=== PATIENT | female | born 1960 | race Two or more races ===

== ENCOUNTER 2024-11-20 15:51 | Inpatient (IN) | payer BC, MEDICAID ==
[~2024-11-20] VITALS: Ht 157.5 cm; Wt 106.6 kg
[2024-11-20] MEDS: IPRATROPIUM BROMIDE (0.02%) 0.5MG/2.5ML NEB HHN STA (16:12)
[2024-11-20] MEDS: ALBUTEROL (0.083%) 2.5MG/3ML NEB HHN STA (16:12)
[2024-11-20] MEDS: CEFTRIAXONE 1GM/50ML 50 ML IV ONE (16:15)
[2024-11-20] MEDS: AZITHROMYCIN 500MG/250ML 250 ML IV ONE (16:15)
[2024-11-20] MEDS: SODIUM CHLORIDE 0.9% (SEPSIS BOLUS) IV ONE (16:34)
[2024-11-20] MEDS: METHYLPREDNISOLONE SOD SUCC 125MG/2ML (ACT-O-VIAL) IV STA (16:42)
[2024-11-20 16:58] LABS: BASOPHILS % 0.7 % (0.0-2.0); EOSINOPHILS % 4.8 % (0.0-5.0); HEMATOCRIT. 26.1 % (36.0-48.0); HEMOGLOBIN. 8.2 g/dL (12.0-16.0); MEAN CORPUSCULAR HEMOGLOBIN 26.9 pg (28.0-32.0); MEAN CORPUSCULAR HGB CONC 31.6 g/dL (31.0-37.0); MEAN CORPUSCULAR VOLUME 85.1 fL (81.0-99.0); MEAN PLATELET VOLUME 8.2 fl (7.4-10.4); MONOCYTES % 9.6 % (2.0-8.0); NEUTROPHILS % 57.9 % (40.0-76.0); PLATELET 348 x1000/uL (130-400); RED BLOOD CELL COUNT 3.07 mill/uL (4.2-5.4); WHITE BLOOD COUNT 6.6 x1000/uL (4.5-11.0)
[2024-11-20 17:11] LABS: CHLORIDE 99 mEq/L (98-107); POTASSIUM 3.1 mEq/L (3.5-5.1); SODIUM 137 mEq/L (136-145)
[2024-11-20 17:12] LABS: CALCIUM 9.4 mg/dL (8.7-10.4); CARBON DIOXIDE 27 mEq/L (21-32)
[2024-11-20 17:17] LABS: CREATININE 0.7 mg/dL (0.6-1.0); D-DIMER 4.13 mg/L FEU (<0.50); GLUCOSE 159 mg/dL (70-105); INR 0.9; PARTIAL THROMBOPLASTIN TIME 25.9 sec (23.4-31.0); PROTHROMBIN TIME 10.3 sec (9.6-11.0); UREA NITROGEN BLOOD 13 mg/dL (9-23)
[2024-11-20 17:19] LABS: ALANINE AMINOTRANSFERASE 38 IU/L (10-49); ALBUMIN 4.3 g/dL (3.2-4.8); ASPARTATE AMINOTRANSFERASE 32 IU/L (<34); BILIRUBIN DIRECT 0.2 mg/dL (<=3.0)
[2024-11-20 17:20] LABS: BILIRUBIN TOTAL 0.7 mg/dL (0.1-1.0); PROTEIN TOTAL 7.2 g/dL (6.0-8.3)
[2024-11-20 17:49] LABS: TROPONIN I HIGH SENSITIVITY < 4 ng/L (3.0-34)
[2024-11-20] MEDS: POTASSIUM CHLORIDE 20MEQ/PACKET PO ONE (18:05)
[2024-11-20] MEDS ORDERED: OXYC1TAB12 PO (18:39)
[2024-11-20] MEDS ORDERED: FLUT1BLS13 (18:39)
[2024-11-20 18:40] VITALS: PULSE 67; RESP 24; O2SAT 99
[2024-11-20] MEDS ORDERED: ZOLPIDEM TARTRATE 5MG TABLET PO PRN (18:45)
[2024-11-20] MEDS ORDERED: DOCUSATE SODIUM 100MG CAPSULE PO PRN (18:45)
[2024-11-20] MEDS: ENOXAPARIN 80MG/0.8ML SYR SUBCUT ONE (19:05)
[2024-11-20] MEDS ORDERED: NALOXONE HCL 0.4MG/ML VIAL IV PRN (19:30)
[2024-11-20] MEDS: ENOXAPARIN 80MG/0.8ML SYR SUBCUT SCH (19:52)
[2024-11-20] MEDS ORDERED: IOHEXOL-350 100 ML BOTTLE ONE (20:50)
[2024-11-20] MEDS: PANTOPRAZOLE 40MG DR TABLET PO SCH (21:00)
[2024-11-20] MEDS: ONDANSETRON HCL 4MG/2ML INJ IV PRN (21:22)
[2024-11-20] MEDS: ACETAMINOPHEN 325MG TABLET PO PRN (21:22)
[2024-11-20 22:50] LABS: CLARITY URINE CLEAR (CLEAR); COLOR URINE YELLOW (YELLOW); GLUCOSE URINE NEGATIVE (NEGATIVE); KETONES URINE NEGATIVE (NEGATIVE); LEUKOCYTE ESTERASE URINE NEGATIVE (NEGATIVE); NITRITE URINE NEGATIVE (NEGATIVE); OCCULT BLOOD URINE NEGATIVE (NEGATIVE); PH URINE 7.5 (4.5-8.0); PROTEIN URINE NEGATIVE (NEGATIVE); SPECIFIC GRAVITY URINE 1.018 (1.005-1.030); UROBILINOGEN URINE 0.2 E.U./dL (0.2-1.0)
[2024-11-20] MEDS: OXYCODONE HCL/ACETAMINOPHEN 5/325MG TABLET PO PRN (23:26)
[2024-11-21 00:45] VITALS: BP 121/60; PULSE 86; RESP 20; TEMP 37.252
[2024-11-21 02:08] LABS: TROPONIN I HIGH SENSITIVITY < 4 ng/L (3.0-34)
[2024-11-21 04:59] VITALS: PULSE 71; RESP 17; O2SAT 97
[2024-11-21] MEDS: IPRATROPIUM/ALBUTEROL 0.5-3(2.5)MG/3ML NEB HHN PRN (04:59)
[2024-11-21 08:00] VITALS: BP 103/55; PULSE 58; RESP 18; TEMP 36.22512; O2SAT 98
[2024-11-21 08:08] LABS: VITAMIN B12 SERUM 619 pg/mL (211-911)
[2024-11-21 09:07] LABS: BASOPHILS % 0.2 % (0.0-2.0); HEMATOCRIT. 22.6 % (36.0-48.0); HEMOGLOBIN. 7.4 g/dL (12.0-16.0); LYMPHOCYTES % 8.5 % (20.0-50.0); MEAN CORPUSCULAR HEMOGLOBIN 27.9 pg (28.0-32.0); MEAN CORPUSCULAR HGB CONC 32.7 g/dL (31.0-37.0); MEAN CORPUSCULAR VOLUME 85.4 fL (81.0-99.0); MEAN PLATELET VOLUME 8.3 fl (7.4-10.4); MONOCYTES % 7.9 % (2.0-8.0); NEUTROPHILS % 83.4 % (40.0-76.0); PLATELET 338 x1000/uL (130-400); RED BLOOD CELL COUNT 2.65 mill/uL (4.2-5.4); RED CELL DISTRIBUTION WIDTH 15.1 % (11.6-14.6); WHITE BLOOD COUNT 7.2 x1000/uL (4.5-11.0)
[2024-11-21 09:15] LABS: CHLORIDE 105 mEq/L (98-107); POTASSIUM 4.5 mEq/L (3.5-5.1); SODIUM 139 mEq/L (136-145)
[2024-11-21 09:16] LABS: CALCIUM 9.5 mg/dL (8.7-10.4); CARBON DIOXIDE 27 mEq/L (21-32)
[2024-11-21] MEDS: PREDNISONE 20MG TABLET PO SCH (09:17)
[2024-11-21] MEDS: FERROUS SULFATE 325MG TABLET PO SCH (09:17)
[2024-11-21 09:21] LABS: CREATININE 0.6 mg/dL (0.6-1.0); GLUCOSE 135 mg/dL (70-105); UREA NITROGEN BLOOD 11 mg/dL (9-23)
[2024-11-21 09:22] LABS: TROPONIN I HIGH SENSITIVITY < 4 ng/L (3.0-34)
[2024-11-21 09:23] LABS: ALANINE AMINOTRANSFERASE 31 IU/L (10-49); ALBUMIN 4.2 g/dL (3.2-4.8); ASPARTATE AMINOTRANSFERASE 23 IU/L (<34); BILIRUBIN DIRECT 0.1 mg/dL (<=3.0); BILIRUBIN TOTAL 0.5 mg/dL (0.1-1.0); PROTEIN TOTAL 6.8 g/dL (6.0-8.3)
[2024-11-21 09:25] LABS: THYROID STIMULATING HORMONE 0.35 uIU/mL (0.55-4.78)
[2024-11-21 12:00] VITALS: BP 101/56; PULSE 70; RESP 18; TEMP 36.22512; O2SAT 98
[2024-11-21] MEDS ORDERED: P20 MT (13:40)
[2024-11-21 16:00] VITALS: BP 122/56; PULSE 65; RESP 18; TEMP 36.22512; O2SAT 100
== END 2024-11-21 18:30 | disposition home or self-care (01) | DRG 202 ==
LOC: ER 15:51 → EDBEDREQ 16:17 → 7EST 18:28 → EDBEDREQTM 18:30 → EDBEDREQ 18:30
PROVIDERS: ADMIT Internal Medicine Pulmonary Disease; ATTEND Internal Medicine Pulmonary Disease
DX: J45.901 Unspecified asthma with (acute) exacerbation (principal); J44.1 Chronic obstructive pulmonary disease with (acute) exacerbation; I10 Essential (primary) hypertension; D64.9 Anemia, unspecified; E66.9 Obesity, unspecified; E87.6 Hypokalemia; Z96.652 Presence of left artificial knee joint
CPT/HCPCS: 36415; 71045; 71275; 80048; 80076; 81003; 82607; 83605; 83880; 84145; 84443; 84484; 85025; 85379; 93005; 93970; 94070; 94640; 99285; J0456; J0696; J1650; J2405; J2919; J7030; J7512; Q9967